=== PATIENT | female | born 1995 | race Two or more races ===

== ENCOUNTER → 2021-09-06 | Outpatient (CLI) | payer OTHER ==
[2016-02-22 19:00] VITALS: BP 97/66
[2021-09-06 13:12] LABS: HEMATOCRIT 41.4 % (36.0-47.0); RED BLOOD COUNT 4.6 x10^6/uL (3.50-5.40); RED CELL DISTRIBUTION WIDTH 12.8 % (11.5-14.5); WHITE BLOOD COUNT 6.8 x10^3/uL (4.0-11.0)
[2021-09-07 21:07] LABS: RUBELLA IGG ANTIBODY 5.62 index (Immune >0.99)
== END ==
LOC: LAB 11:19
PROVIDERS: ATTEND Registered Nurse
DX: O09.71 Supervision of high risk pregnancy due to social problems, first trimester (principal)
CPT/HCPCS: 85027; 85660; 86592; 86703; 86762; 86787; 86803; 86850; 86900; 86901; 87086; 87340; 87491; 87591

== ENCOUNTER → 2021-09-20 | Outpatient (CLI) | payer OTHER ==
[2016-02-22 19:00] VITALS: BP 97/66
--- NOTE | 2021-09-20 10:53 | RAD ---
EXAM: Obstetric sonogram. HISTORY: Unsure dates. TECHNIQUE: Sonographic imaging of the pelvis was performed. COMPARISON: None. FINDINGS: The uterus measures 11 x 8 x 7 cm. There is a single intrauterine gestational sac with yolk sac and pole. The crown-rump length is 3.0 cm, corresponding with a gestational age of 9 weeks and 6 days and due date of 04/19/2022. There is a normal heart rate of 165 bpm. The gesta tional sac is normal in configuration and location. The maternal ovaries are unremarkable. There is n o pelvic free fluid. IMPRESSION: Single intrauterine fetus with normal heart rate and gestational age based on ultrasound measurements of 9 weeks and 6 days. Electronically signed by: Nika Wu MD (09/20/2021 10:50 AM) [id number]
== END ==
LOC: US 10:13
PROVIDERS: ATTEND Registered Nurse
DX: O09.71 Supervision of high risk pregnancy due to social problems, first trimester (principal); Z3A.09 9 weeks gestation of pregnancy
CPT/HCPCS: 76801

== ENCOUNTER → 2021-11-22 | Outpatient (CLI) | payer OTHER ==
[2016-02-22 19:00] VITALS: BP 97/66
--- NOTE | 2021-11-23 17:40 | RAD ---
EXAM: Ultrasound US OB >14 WEEKS 11/22/2021 10:45 AM INDICATION: Screening. Gestational age by LMP is 18 weeks 6 days. COMPARISON: OB ultrasound 09/20/2021 FINDINGS: The exam was technically difficult. There is a single living intrauterine gestation in breech position. heart rate is 140 bpm. Plac enta is anterior. The following anatomy as visualized: Head, lateral ventricles, cerebellum, stomach, bladder, ki dneys, three-vessel cord, 4 extremities. Cervical, thoracic, and lumbar spine were visualized in milan nal view but unable to be evaluated in sagittal view due to position of the fetus. Four-chamber heart was not clearly demonstrate due to technical limitations of the exam. The diaphragm is also difficul t to visualize due to the position of the fetus and technical limitations of the exam. biometry: Biparietal diameter: 4.45 cm, 19 weeks 3 days Head circumference: 17.11 cm, 19 weeks 5 days Abdominal circumference: 14.04 cm, 19 weeks 3 days Femur length: 3.13 cm, 19 weeks 5 days HC/AC ratio: 1.2 Estimated gestational age by ultrasound: 19 weeks 4 days. Estimated weight: 300 g. EDC by today 's ultrasound is 04/14/2022 IMPRESSION: 1. Single living intrauterine in breech position. Gestational age by ultrasound 19 weeks 4 days, estimated weight 300 g. 2. Technically difficult anatomy scan. Limited evaluation of the spine in coronal view only due to po sitioning of the fetus. The heart and diaphragm were also difficult to evaluate. Recommend follow-up ultrasound to reevaluate these structures. Electronically signed by: Gwendolyn Leiva MD (11/23/2021 5:38 PM) [id number]
== END ==
LOC: US 10:45
PROVIDERS: ATTEND Registered Nurse
DX: O32.1XX0 Maternal care for breech presentation, not applicable or unspecified (principal); Z3A.19 19 weeks gestation of pregnancy
CPT/HCPCS: 76805